=== PATIENT | female | born 1955 | race Caucasian/White ===

== ENCOUNTER 2017-11-17 07:01 | Day surgery (SDC) | payer OTHER ==
[2017-11-17 10:58] LABS: ADD MAN DIFF? NO
[2017-11-17 11:05] LABS: WHITE BLOOD COUNT 7.1 10^3/ul (4.8-10.8)
[2017-11-17 11:05] LABS: BASOPHILS % 0.6 % (0.0-2.0); EOSINOPHILS # 0.2 10^3/ul (0.0-0.5); EOSINOPHILS % 2.1 % (0.0-7.0); HEMATOCRIT 38.2 % (37.0-47.0); HEMOGLOBIN 12.3 g/dl (12.0-16.0); LYMPHOCYTES # 2.5 10^3/ul (0.8-2.9); LYMPHOCYTES % 34.9 % (15.0-51.0); MEAN CORPUSCULAR HEMOGLOBIN 30.1 pg (29.0-33.0); MEAN CORPUSCULAR HGB CONC 32.2 g/dl (32.0-37.0); MEAN CORPUSCULAR VOLUME 93.6 fl (82.0-101.0); MONOCYTE # 0.6 10^3/ul (0.3-0.9); NEUTROPHIL # 3.8 10^3/ul (1.6-7.5); NEUTROPHILS % 53.1 % (39.0-77.0); PLATELET COUNT 278 10^3/UL (140-415); RED BLOOD COUNT 4.08 10^6/ul (4.20-5.40); RED CELL DISTRIBUTION WIDTH 13.9 % (11.5-14.5)
[2017-11-17 11:21] LABS: ALANINE AMINOTRANSFERASE 44 IU/L (13-69); ALBUMIN 4.4 g/dl (3.3-4.9); ALBUMIN/GLOBULIN RATIO 1.12; ALKALINE PHOSPHATASE 92 IU/L (42-121); ANION GAP 14 (8-16); ASPARTATE AMINO TRANSFERASE 36 IU/L (15-46); BILIRUBIN,INDIRECT 0.6 mg/dl (0-1.1); BILIRUBIN,TOTAL 0.6 mg/dl (0.2-1.3); BLOOD UREA NITROGEN 13 mg/dl (7-20); CALCIUM 9.5 mg/dl (8.4-10.2); CARBON DIOXIDE 27 mmol/L (21-31); CHLORIDE 107 mmol/L (97-110); GLUCOSE 111 mg/dl (70-220); POTASSIUM 4.4 mmol/L (3.5-5.1); SODIUM 144 mmol/L (135-144); TOTAL PROTEIN 8.3 g/dl (6.1-8.1)
[2017-11-17 11:23] LABS: INR 0.93; PROTIME 12.6 Sec (11.9-14.9)
[2017-11-17 11:52] LABS: PARTIAL THROMBOPLASTIN TIME 29.2 Sec (25.0-35.0)
[2017-11-17] MEDS ORDERED: SOD CHLORIDE 0.9% 1,000 ML IV (12:00)
[2017-11-17] MEDS ORDERED: ISOSULFAN BLUE 1% 5 ML INJ SC (13:14)
[2017-11-17] MEDS ORDERED: CEFAZOLIN 1 GM INJ (13:17)
[2017-11-17] MEDS ORDERED: PROPOFOL 20 ML (13:19)
[2017-11-17] MEDS ORDERED: SUCCINYLCHOLINE CHLORIDE 100 MG/5 ML SYG IV (13:20)
[2017-11-17] MEDS ORDERED: GLYCOPYRROLATE 0.4 MG INJ (13:20)
[2017-11-17] MEDS ORDERED: ROCURONIUM 50 MG INJ (13:20)
[2017-11-17] MEDS ORDERED: NEOSTIGMINE 3 MG/3 ML SYRINGE (13:20)
[2017-11-17] MEDS: CEFAZOLIN 2 GM/50 ML (PMX) 50 ML IVPB (13:25)
[2017-11-17] MEDS ORDERED: DEXAMETHASONE 4 MG/ML 1 ML INJ (13:32)
[2017-11-17] MEDS ORDERED: ONDANSETRON 4 MG INJ (13:32)
[2017-11-17] MEDS: BUPIVACAINE 0.5%/EPI (SDV) 30 ML INJ (14:30)
[2017-11-17] MEDS ORDERED: LABETALOL HCL 20MG INJ (14:53)
[2017-11-17] MEDS ORDERED: HYDROmorphONE 1 MG/5 ML IV SYRINGE IV (15:18)
[2017-11-17] MEDS ORDERED: DIPHENHYDRAMINE 50 MG INJ IV (15:30)
[2017-11-17] MEDS ORDERED: OXYCODONE/ACETAMINOPHEN (5/325) TAB PO ×2 (15:30)
[2017-11-17] MEDS ORDERED: FENTAnyl 50 MCG/ML VIAL IV ×2 (15:30)
[2017-11-17] MEDS: HYDROmorphONE 1 MG/5 ML IV SYRINGE IV ×3 (15:32→15:44)
[2017-11-17] MEDS: ONDANSETRON 4 MG INJ IV (15:57)
[2017-11-17] MEDS: MEPERIDINE 25 MG INJ IV (15:57)
[2017-11-17] MEDS ORDERED: HYDROCODONE/APAP (5/325) TAB PO ×2 (16:00)
[2017-11-17] MEDS ORDERED: ONDANSETRON 4 MG INJ IV (16:00)
[2017-11-17] MEDS ORDERED: DEXTROSE 5%-0.45% NACL 1,000 ML IV (16:00)
== END 2017-11-17 19:12 | disposition home or self-care (01) ==
LOC: SDS 07:01
DX: C83.00 Small cell B-cell lymphoma, unspecified site (principal); E78.5 Hyperlipidemia, unspecified; E66.9 Obesity, unspecified; Z68.33 Body mass index [BMI] 33.0-33.9, adult
CPT/HCPCS: 38500; 71045; 80053; 85025; 85610; 85730; 87070; 87075; 87102; 87116; 88307; 88331; 88341; 88342; 93005

== ENCOUNTER 2017-11-19 04:39 | Emergency (ER) | payer OTHER ==
[2017-11-19] MEDS: KETOROLAC 15 MG INJ IV (05:35)
[2017-11-19 05:39] LABS: ADD MAN DIFF? NO
[2017-11-19 05:40] LABS: WHITE BLOOD COUNT 8.6 10^3/ul (4.8-10.8)
[2017-11-19 05:40] LABS: BASOPHILS % 0.5 % (0.0-2.0); EOSINOPHILS # 0.2 10^3/ul (0.0-0.5); EOSINOPHILS % 2.1 % (0.0-7.0); HEMATOCRIT 36.7 % (37.0-47.0); HEMOGLOBIN 11.5 g/dl (12.0-16.0); LYMPHOCYTES # 3.3 10^3/ul (0.8-2.9); MEAN CORPUSCULAR HEMOGLOBIN 29.9 pg (29.0-33.0); MEAN CORPUSCULAR HGB CONC 31.3 g/dl (32.0-37.0); MEAN CORPUSCULAR VOLUME 95.3 fl (82.0-101.0); MEAN PLATELET VOLUME 9.9 fl (7.4-10.4); MONOCYTE # 0.8 10^3/ul (0.3-0.9); MONOCYTES % 9.8 % (0.0-11.0); NEUTROPHIL # 4.2 10^3/ul (1.6-7.5); NEUTROPHILS % 49.1 % (39.0-77.0); PLATELET COUNT 251 10^3/UL (140-415); RED BLOOD COUNT 3.85 10^6/ul (4.20-5.40); RED CELL DISTRIBUTION WIDTH 14.2 % (11.5-14.5)
[2017-11-19 05:47] LABS: ADD UMIC YES; UR ASCORBIC ACID NEGATIVE (NEGATIVE); UR BACTERIA FEW /HPF (NONE SEEN); UR BILIRUBIN (Dip) NEGATIVE (NEGATIVE); UR BLOOD (Dip) 1+ mg/dL (NEGATIVE); UR CLARITY SLIGHTLY CLOUDY (CLEAR); UR COLOR STRAW (YELLOW); UR GLUCOSE (Dip) NEGATIVE (NEGATIVE); UR KETONES (Dip) NEGATIVE (NEGATIVE); UR LEUKOCYTE ESTERASE (Dip) TRACE Leu/ul (NEGATIVE); UR NITRITE (Dip) NEGATIVE (NEGATIVE); UR RBC 1 /HPF (0-5); UR SPECIFIC GRAVITY (Dip) 1.006 (1.003-1.030); UR SQUAMOUS EPITHELIAL CELL FEW /HPF (FEW); UR TOTAL PROTEIN (Dip) NEGATIVE (NEGATIVE); UR UROBILINOGEN (Dip) NEGATIVE (NEGATIVE); UR WBC 5 /HPF (0-5)
[2017-11-19 06:06] LABS: ALANINE AMINOTRANSFERASE 39 IU/L (13-69); ALBUMIN 4.1 g/dl (3.3-4.9); ALKALINE PHOSPHATASE 78 IU/L (42-121); ANION GAP 14 (8-16); ASPARTATE AMINO TRANSFERASE 31 IU/L (15-46); BILIRUBIN,INDIRECT 0.6 mg/dl (0-1.1); BILIRUBIN,TOTAL 0.6 mg/dl (0.2-1.3); BLOOD UREA NITROGEN 14 mg/dl (7-20); CALCIUM 9.1 mg/dl (8.4-10.2); CARBON DIOXIDE 29 mmol/L (21-31); CHLORIDE 106 mmol/L (97-110); CREATININE 0.67 mg/dl (0.44-1.00); GLUCOSE 117 mg/dl (70-220); LIPASE 242 U/L (23-300); POTASSIUM 4.2 mmol/L (3.5-5.1); SODIUM 145 mmol/L (135-144); TOTAL PROTEIN 7.8 g/dl (6.1-8.1)
[2017-11-19 06:18] LABS: TROPONIN-I < 0.010 ng/ml (0.000-0.120)
== END 2017-11-19 07:40 | disposition home or self-care (01) ==
LOC: E/R 04:39
DX: N30.00 Acute cystitis without hematuria (principal); M79.1 Myalgia; R10.9 Unspecified abdominal pain; Z85.828 Personal history of other malignant neoplasm of skin
CPT/HCPCS: 36415; 71045; 80053; 81001; 83690; 84484; 85025; 93005; 96372; 99285-25